=== PATIENT | female | born 1960 | race Caucasian/White ===

== ENCOUNTER → 2018-05-16 14:32 | Outpatient (POV) | payer MEDICARE, OTHER, SELFPAY | PROVIDERS: Visit Provider Nurse Practitioner Acute Care | DX: Z00.00 Encounter for general adult medical examination without abnormal findings (principal) ==

== ENCOUNTER → 2018-07-22 09:55 | Outpatient (CLI) | payer MEDICARE, OTHER, SELFPAY ==
--- NOTE | 2018-07-22 09:56 | MM_ITS ---
MM Dig screening mamm BI w/CAD CAD Screening COMPARISON: Digital mammograms 04/27/2017 and 03/03/2016 INDICATION: There is no personal or family history of breast cancer TECHNIQUE: Standard CC and MLO images were obtained. R2 CAD reviewed. FINDINGS: Scattered fibroglandular densities are seen throughout both breasts. There is no new or suspicious lesion in either breast and there are no suspicious microcalcifications. There are couple benign-appearing calcifications left breast. There is a pacemaker device overlying left axilla as noted previously. IMPRESSION: Fibrofatty parenchyma with no suspicious lesion seen BI-RADS Category: 2 Benign Finding(s) RECOMMENDED FOLLOW-UP: 1YR - 1 YEAR FOLLOW-UP (A letter has been sent to the patient regarding results of the study.)
== END ==
PROVIDERS: PCP Internal Medicine; Visit Provider Nurse Practitioner Obstetrics & Gynecology
DX: Z12.31 Encounter for screening mammogram for malignant neoplasm of breast (principal)
CPT/HCPCS: 77067

== ENCOUNTER → 2019-08-11 15:47 | Outpatient (CLI) | payer MEDICARE, OTHER, SELFPAY ==
--- NOTE | 2019-08-11 16:00 | MM_ITS ---
PROCEDURE: MM DIG SCREENING MAMM BI W/CAD CLINICAL INDICATION: Routine Screening Mammogram There is no personal or family history of breast cancer. COMPARISON: DMDXUWAL DIG MAMM-DX UNI LT W ADD VIEW from 03/16/2016 DMSB DIG MAMM-SCREEN LISSA W/CAD from 04/27/2017 [facility] MM Dig screening mamm BI w/CAD from 07/22/2018 TECHNIQUE: Standard CC and MLO images were obtained. R2 CAD reviewed. FINDINGS: Scattered fibroglandular densities are seen throughout both breasts and the findings of bilateral symmetrical. Again noted is the pacemaker device projecting over the left axilla. There are couple of benign-appearing microcalcifications in each breast. There is no suspicious lesion and no suspicious microcalcifications. IMPRESSION: Fibrofatty parenchyma with no suspicious lesions seen BI-RAD Category: 2 Benign Finding(s) FOLLOW-UP: 1YR 1 Year Follow-up (A letter has been sent to the patient regarding results of the study.) Dictated by: Dr. Nikko Cohen MD 08/15/2019 15:[address] Nikko Cohen MD in [place] 08/15/2019 15:51
== END ==
PROVIDERS: PCP Internal Medicine; Visit Provider Nurse Practitioner Obstetrics & Gynecology
DX: Z12.31 Encounter for screening mammogram for malignant neoplasm of breast (principal)
CPT/HCPCS: 77067

== ENCOUNTER → 2020-09-04 16:11 | Outpatient (CLI) | payer MEDICARE, OTHER, SELFPAY ==
--- NOTE | 2020-09-04 16:11 | MM_ITS ---
PROCEDURE: MM DIG SCREENING MAMM BI W/CAD Digital Breast Tomosynthesis Included CLINICAL INDICATION: screening xmg There is no personal or family history of breast cancer. COMPARISON: MG DMSB DIG MAMM-SCREEN LISSA W/CAD from 04/27/2017 MG [facility] MM Dig screening mamm BI w/CAD from 07/22/2018 MG MM DIG SCREENING MAMM BI W/CAD from 08/11/2019 TECHNIQUE: Standard CC and MLO images and 3D Tomosynthesis was obtained. R2 CAD reviewed. FINDINGS: Mild scattered fibroglandular densities are seen throughout each breast on a background fatty breast parenchyma. There has been mild progressive fatty replacement of the breast parenchyma to previous studies. Again noted is partially visualized cardiac device overlying the axillary tail left breast. There is no new suspicious lesion in either breast and no suspicious microcalcifications. IMPRESSION: Fibrofatty parenchyma with no suspicious lesions seen BI-RAD Category: 2 Benign Finding(s) FOLLOW-UP: 1YR 1 Year Follow-up (A letter has been sent to the patient regarding results of the study.) Dictated by: Dr. Nikko Cohen MD 09/06/2020 09:47 Dr. Nikko Cohen MD in [place] 09/06/2020 09:47
== END ==
PROVIDERS: PCP Internal Medicine; Visit Provider Nurse Practitioner Obstetrics & Gynecology
DX: Z12.31 Encounter for screening mammogram for malignant neoplasm of breast (principal)
CPT/HCPCS: 77063; 77067

== ENCOUNTER 2020-11-27 12:21 | Day surgery (SDC) | payer MEDICARE, OTHER, SELFPAY ==
--- NOTE | 2020-11-27 | IR_ITS ---
APPROVED REPORT Patient Location: Out[facility] Worker: DANILO Montana RT (R) PROCEDURES 1. Pocket Revision 2. Removal of old Pacemaker 3. Implant of Permanent Pacemaker INDICATION Sinus Bradycardia, End of Battery Life Informed consent was obtained prior to the procedure. COMPLICATIONS None Estimated Blood Loss: Less than 10 mls TECHNIQUE 1% lidocaine with epinephrine used to anesthetize the left anterior aspect of the chest. Scalpel was used to make the initial cutaneous incision and then used to dissect down to the existing pacemaker generator. The generator was removed from the existing pocket. Digital manipulation was required along with intermittent usage of scalpel in order to revise the pocket. The leads were removed from the old generator. The new generator was screwed to the existing leads and secured into place. Electronic interrogation proved acceptable thresholds and voltage within the lead. Antibiotics were used to flush the pocket and the pacemaker was secured using 3-0 silk into the newly revised pocket. Monocryl was used to close the subcutaneous tissue and then miguel were placed on the cutaneous area in order to approximate the incision. Patient was transferred to the postop holding area in stable condition. INTERROGATION Generator Model number: [employer] [facility] [facility] IS-1, L311 Generator Serial number: [id number] Atrial lead model number: [employer], 1488T Atrial lead serial number: [id number] P-wave: 2.5mV Impedence: 450 ohms Threshold: 0.5V@0.4ms Right Ventricular lead model number: [employer], 1645T Right Ventricular lead serial number: [id number] R-wave: 5.0mV Impedence: 700 ohms Threshold: 0.7V@0.4ms Pacing Parameters: Mode: DDDR RYTHMIQ: AAIR with VVI Backup Base/Max Track: 70/130 ppm No diaphragmatic stimulation at 10 volts. IMPRESSION 1. Successful Pocket Revision 2. Successful Removal of old Pacemaker 3. Successful Implant of Permanent Pacemaker PLAN 1. Post op wound care, Follow up office visit Electronically signed by : Gil Browning, 11/28/2020 11:49:45
[2020-11-27 12:51] VITALS: BMI 42.7
[2020-11-27 13:05] VITALS: BP 144/67; PULSE 70; RESP 17; O2SAT 98
[2020-11-27 13:07] VITALS: PULSE 70
[2020-11-27 16:07] VITALS: BP 111/74; PULSE 77; RESP 18; TEMP 36.1; O2SAT 98
[2020-11-27 16:15] VITALS: BP 120/76; PULSE 70; RESP 18; O2SAT 98
--- NOTE | 2020-11-27 16:15 | P.PN_ITS ---
[facility] Anesthesia Checklist - Structural Data Admitted From: Home Planned Operative Procedure/s: battery change Consent for Planned Operative Procedure(s) Verified: Yes - Additional verifications Anesthesia Reactions: No - Airway Assessment C-Spine Mobility Assessed: Yes TMJ Mobility Assessed: Yes Dentition: Good Dentition - Neurological Assessment Level of Consciousness: Awake, Alert, Appropriate - Anesthesia Plan Anesthesia Risk discussed: Yes Anesthesia Plan: Verified ASA Class: III Anesthesia Type: MAC [facility] History I have reviewed the patient's past medical history: Yes Medical History: Reports:: Arrhythmia, Coronary Artery Disease, Diabetes Mellitus Type 2, Gastroesophageal Reflux Disease(GERD), Hyperlipidemia, Hyp ertension, Internal Pacemaker Denies:: Diabetes Mellitus Type 1, Lung Disease, Seizures *Have you ever received a pneumonia vaccine?: Yes *Have you received a flu vaccine this season?: Yes Other Medical History: Reports: Hypothyroidism Anesthesia experience/problems:: none Other Surgeries: Yes: Cardiac Catheterization, Hysterectomy-Total, Pacemaker, Other (back sx) Amputation: No Fractures: No - *Social History Last grade of school completed: High school graduate Smoking Status: Never smoker Alcohol Intake: never Alcohol Intake Frequency:: other Substance Use Type: denies use *Occupational Status:: retired *Travel in the last 8 weeks: None Family Hx:: Coronary Artery Disease
[2020-11-27 16:30] VITALS: BP 144/79; PULSE 72; RESP 18; O2SAT 98
[2020-11-27 16:45] VITALS: BP 144/79; PULSE 72; RESP 18; O2SAT 98
== END 2020-11-27 16:51 | disposition home or self-care (01) ==
LOC: CATHLAB 12:22
PROVIDERS: PCP Internal Medicine; Visit Provider Internal Medicine
DX: Z45.010 Encounter for checking and testing of cardiac pacemaker pulse generator [battery] (principal); E11.9 Type 2 diabetes mellitus without complications; Z79.84 Long term (current) use of oral hypoglycemic drugs; Z79.899 Other long term (current) drug therapy; I49.5 Sick sinus syndrome; I10 Essential (primary) hypertension; E78.5 Hyperlipidemia, unspecified
CPT/HCPCS: 33228; C1785

== ENCOUNTER 2020-12-20 12:25 | Observation (INO) | payer MEDICARE, OTHER, SELFPAY ==
[2020-12-20] VITALS (15 sets, daily range): BP systolic 124–174; BP diastolic 69–95; PULSE 70–85; RESP 16–21; TEMP 36.6–36.8; O2SAT 96–99; BMI 42.7; BMI 42.5
[2020-12-20 13:10] LABS: Chloride 108 mmol/L (98-107); Sodium 133 mmol/L (136-145)
[2020-12-20 13:13] LABS: Blood Urea Nitrogen 26 mg/dl (7-17); Carbon Dioxide 18 mmol/L (22.0-30.0); Creatinine Clearance Estimated 27 mL/min (50-200); Estimated Glomerular Filt Rate 27 ml/min (>60); GFR (African American) 33 ML/MIN (>60)
[2020-12-20 13:14] LABS: Calcium 10.2 mg/dl (8.4-10.2); Glucose 110 mg/dl (74-100); Magnesium 1.7 mg/dl (1.6-2.3)
--- NOTE | 2020-12-20 13:18 | HMH.EDGENADL ---
ED Disposition Clinical Impression: Hyperkalemia Disposition: Admitted As Inpatient Condition on Discharge: Good - Critical Care Critical Care Time: No Attestation: On 12/20/20, the high probability of a clinically significant, sudden or life threatening deterioration of the following system(s) required my full and direct attention, intervention and personal management. The time I documented below is in addition to time spent performing reported procedures but includes the following listed in this critical care notation. Medical Decision Making - Medical Records Medical records reviewed: Yes: I reviewed the patient's medical records. - Edu Inquiry Pt receiving controlled substance: No Vital Signs: 12/20/20 12:26 12/20/20 13:00 12/20/20 13:31 Temperature 98 F Temperature Source Oral Pulse Rate 70 70 Pulse Rate [Radial] 78 Respiratory Rate 16 20 21 Blood Pressure 174/87 H 134/72 Blood Pressure [Right Arm] 172/95 H Blood Pressure Mean 116 94 Blood Pressure Mean [Right Arm] 120 Blood Pressure Position [Right Arm] Sitting 02 Sat by Pulse Oximetry 96 99 99 Oxygen Delivery Method Room Air - Lab Data Lab results reviewed: Yes: I reviewed the patient's lab results. Lab Results 12/20/20 12:50: Sodium 133 L, Potassium 8.4 H*, Chloride 108 H, Carbon Dioxide 18 L, Anion Gap 15.4 H, BUN 26 H, Creatinine 1.90 H, Estimated Creat Clear 27, Estimated GFR 27 L, Est GFR ( Amer) 33 L, Glucose 110 H, Calcium 10.2, Phosphorus 4.0, Magnesium 1.7 12/20/20 12:50: WBC 9.1, RBC 3.64 L, Hgb 11.0 L, Hct 33.7 L, MCV 92.5, MCH 30.2, MCHC 32.6, RDW 13.7, Plt Count 245, MPV 8.5, Neut % (Auto) 54.2, Lymph % (Auto) 35.7, Perkins % (Auto) 6.2, Eos % (Auto) 3.8, Baso % (Auto) 0.3, Neut # (Auto) 4.9, Lymph # (Auto) 3.3, Perkins # (Auto) 0.6, Eos # (Auto) 0.3, Baso # (Auto) 0.0 Result diagrams: 12/20/20 12:50 12/20/20 12:50 Orders (Tests/Meds): ED MEDICATIONS Generic Name Dose Route Start Last Admin Trade Name Freq PRN Reason Stop Dose Admin Sodium Chloride 1,000 mls @ 999 mls/hr 12/20/20 13:30 12/20/20 13:43 Sod Chlor 0.9% 1000ml Bag IV 12/20/20 14:30 999 mls/hr .Q1H1M SIXTO Administration Discontinued Medications Generic Name Dose Route Start Last Admin Trade Name Freq PRN Reason Stop Dose Admin Albuterol Sulfate 7.5 mg 12/20/20 13:29 Albuterol 0.083% 2.5 Mg/3 Ml Neb IH 12/20/20 13:30 ONCE ONE Dextrose 25 ml 12/20/20 13:24 12/20/20 13:43 Dextrose 50% 50ml Syringe (Crash Cart) IVP 12/20/20 13:25 25 ml ONCE ONE Administration Insulin Human Regular 10 unit 12/20/20 13:24 12/20/20 13:43 Insulin Human Regular 100 Units/Ml 10ml Vial IVP 12/20/20 13:25 10 unit ONCE ONE Administration Sodium Polystyrene Sulfonate 15 gm 12/20/20 13:24 12/20/20 13:44 Sodium Poly Sulfon 15gm/60ml Oral.Susp PO 12/20/20 13:25 15 gm ONCE ONE Administration ORDERS Category Date Time Status Full Resp Panel w/COVID ([facility]) Routine Lab 12/20/20 13:49 Received Urinalysis and Microscopic Stat Lab 12/20/20 13:22 Ordered ECG Request by Dr/Raúl Stat Y 12/20/20 13:22 Ordered - ECG Data Tracing #1 EKG at 1349 shows a normal sinus rhythm with a rate of 72. No acute ST segment elevation or depression. Normal AR, QRS and QTc. EKG interpreted by me. Medical Decision Narrative: Patient does have elevated potassium here of 8.4, no chest pain and no EKG changes. I have ordered Kayexalate, insulin, D50 and albuterol treatment. I discussed this case with Dr. La and patient will be admitted for further management. Creatinine of 1.9. General Adult HPI - General Chief complaint: Recheck/Abnormal Lab/Rx Stated complaint: high potasioum Time Seen by Provider: 12/20/20 13:18 Mode of Arrival: Ambulatory Limitations: No Limitations Description of Symptoms (Recalled from ER Triage Doc. by RN): to ed per pvt car pt states sent to ed by pcp for elevated K+ today. pt de
[2020-12-20 13:20] LABS: Anion Gap 15.4 mEq/L (5-15); Potassium 8.4 mmoL/L (3.5-5.1)
[2020-12-20 13:42] LABS: Basophils % 0.3 % (0.1-2.0); Eosinophils # 0.3 K/mm3 (0.0-0.4); Eosinophils % 3.8 % (0.1-12.0); Hematocrit 33.7 % (37.0-47.0); Lymphocytes # 3.3 K/mm3 (0.7-4.5); Lymphocytes % 35.7 % (10-50); Mean Corpuscular HGB Conc 32.6 g/dL (31.8-35.4); Mean Corpuscular Hemoglobin 30.2 pg (27.0-31.2); Mean Corpuscular Volume 92.5 fl (81-99); Mean Platelet Volume 8.5 fl (7.4-10.4); Monocytes # 0.6 K/mm3 (0.1-1.0); Monocytes % 6.2 % (1.7-9.3); Neutrophils # 4.9 K/mm3 (1.8-7.8); Neutrophils % 54.2 % (37.0-80.0); Platelet Count 245 K/mm3 (142-424); Red Blood Count 3.64 M/mm3 (4.20-5.40); Red Cell Distribution Width 13.7 % (11.5-17.5); White Blood Count 9.1 K/mm3 (4.8-10.8)
--- NOTE | 2020-12-20 13:49 | ECG_ITS ---
APPROVED REPORT Exam: Resting ECG HR:72 bpm ECG Measurements Heart Rate [address] 182 P 33 QRSd 94 QRS 12 QT 372 T 39 QTc 407 Conclusion Normal sinus rhythm Low voltage QRS Borderline ECG Electronically signed by : Jeferson Mcmillan, 12/21/2020 21:07:03
[2020-12-20 14:04] LABS: Adenovirus,PCR Not Detected (NotDetected); Bordetella Pertussis Not Detected (NotDetected); Chlamydophila Pneumoniae, PCR Not Detected (NotDetected); Coronavirus 19, PCR Not Detected (NotDetected); Coronavirus 229E Not Detected (NotDetected); Coronavirus NL63 Not Detected (NotDetected); Coronavirus OC43 Not Detected (NotDetected); Coronovirus HKU1,PCR Not Detected (NotDetected); Human Metapneumovirus Not Detected (NotDetected); Influenza A, PCR Not Detected (NotDetected); Influenza AH1, 2009 Not Detected (NotDetected); Influenza AH1, PCR Not Detected (NotDetected); Influenza AH3,PCR Not Detected (NotDetected); Influenza B, PCR Not Detected (NotDetected); Mycoplasma Pneumoniae, PCR Not Detected (NotDetected); Parainfluenza 1, PCR Not Detected (NotDetected); Parainfluenza 2, PCR Not Detected (NotDetected); Parainfluenza 3, PCR Not Detected (NotDetected); Parainfluenza 4, PCR Not Detected (NotDetected); Respiratory Syncytial Virus Not Detected (NotDetected); Rhinovirus/Enterovirus Not Detected (NotDetected)
--- NOTE | 2020-12-20 14:56 | HMH.PHAVTE ---
[facility] Pharmacy VTE Monitoring - Patient Demographics Admission date: 12/20/20 Report Date: 12/20/20 Time: 14:56 Allergies/Adverse Reactions: Patient Allergies No Known Allergies Allergy (Verified 12/16/20 10:12) Height: 1.63 m Weight: 112.945 kg Patient Problems: Current Active Problems Hyperkalemia (Acute) - VTE Risk Labs: VTE Related Lab Results Hgb 11.0 g/dL (12.2-16.2) L 12/20/20 12:50 Hct 33.7 % (37.0-47.0) L 12/20/20 12:50 Plt Count 245 K/mm3 (142-424) 12/20/20 12:50 BUN 26 mg/dl (7-17) H 12/20/20 12:50 Creatinine 1.90 mg/dl (0.52-1.04) H 12/20/20 12:50 Estimated Creat Clear 27 mL/min (50-200) 12/20/20 12:50 Clinical Trial Participant: No - Prophylaxis VTE Prophylaxis Ordered?: Yes Types of VTE Prophylaxis: TEDS Knee High
--- NOTE | 2020-12-20 15:00 | PC.NURSE ---
PT RESTING OFFERS NO C/O AT PRESENT
--- NOTE | 2020-12-20 16:00 | PC.NURSE ---
PT UPDATED ON PLAN OF CARE
--- NOTE | 2020-12-20 17:00 | PC.NURSE ---
PT UPDATED ON PLAN OF CARE
--- NOTE | 2020-12-20 18:57 | HMH.HP ---
*Admission Date: 12/20/20 *Chief complaint: hyperkalemia on outpatient labs, fatigue *History of present illness: Ms. Meredith is a pleasant 60-year-old female with recent history of replacement of pacemaker generator. Past medical history significant for hypertension, hyperlipidemia, diabetes, arrhythmia, hypothyroid disease. She presented to the ER today at the urging of her primary care physician due to elevated potassium on lab work with recheck over the past 2 days. Patient states she has had some fatigue but denies kathya arrhythmias, palpitation, chest pain. She reports having a placed on Bactrim for suspected pacemaker pocket infection, saw her primary care provider 2 days ago for weakness and fatigue that was thought to maybe be related to the Bactrim. She was taken off of Bactrim and placed on another antibiotic that she does not know the name of. She has felt much better since stopping the Bactrim, but labs were returned showing a potassium of 7.2. Today, patient is completely asymptomatic including no chest pain, shortness of breath, vomiting, urinary symptoms. Admitted to medicine for further management and observation overnight with serial labs to monitor for improvement in her potassium. [facility] History I have reviewed the patient's past medical history: Yes Medical History: Reports:: Arrhythmia, Coronary Artery Disease, Diabetes Mellitus Type 2, Gastroesophageal Reflux Disease(GERD), Hyperlipidemia, Hypertension, Internal Pacemaker Denies:: Cancer, Diabetes Mellitus Type 1, Lung Disease, MRSA, Seizures *Have you ever received a pneumonia vaccine?: Yes *Have you received a flu vaccine this season?: Yes Other Medical History: Reports: Arthritis, Hypothyroidism, Thyroid Disease Other Surgeries: Yes: Cardiac Catheterization, Colonoscopy, EGD, Hysterectomy-Total, Pacemaker, Other (back sx) Amputation: No Fractures: No - *Social History Last grade of school completed: High school graduate Smoking Status: Never smoker Alcohol Intake: never Alcohol Intake Frequency:: other Substance Use Type: denies use *Occupational Status:: retired, disabled Housing: house Household Members: spouse *Travel in the last 8 weeks: None Family Hx:: Cancer, Diabetes, Heart Attack, Hyperlipidemia, Hypertension Review of Systems - Review of Systems Review of systems:: pertinent systems reviewed and negative unless documented below (14 point review of systems performed, pertinent positives and negatives as per HPI) Meds Home Medications Medication Instructions Recorded Confirmed Type aspirin 325 mg tablet 325 mg PO ONCE tab 11/10/17 12/20/20 History benazepril 40 mg tablet 40 mg PO ONCE 11/10/17 12/20/20 History hydrochlorothiazide 25 mg tablet 25 mg PO QAM 11/10/17 12/20/20 History omeprazole 40 mg capsule,delayed 40 mg PO ONCE 11/10/17 12/20/20 History release pravastatin 20 mg tablet 20 mg PO QHS 11/10/17 12/20/20 History metformin 500 mg tablet 500 mg PO BID 05/12/18 12/20/20 History carvediloL [Carvedilol 25mg Tab] 25 mg PO BID 06/22/18 12/20/20 History potassium chloride 20 mEq 20 meq PO DAILY tab 05/09/20 12/20/20 History tablet,extended release(part/cryst) levothyroxine 100 mcg tablet 100 mcg PO DAILY tab 09/04/20 12/20/20 History Sulfamethoxazole/Trimethoprim 2 tab PO BID 12/20/20 12/20/20 History [Sulfamethoxazole-Tmp Ds Tablet*] Allergies Allergy/AdvReac Type Severity Reaction Status Date / Time No Known Allergies Allergy Verified 12/16/20 10:12 Exam Vital signs and Labs for Last 24 Hours: Temp Pulse Resp BP Pulse Ox 98.3 F 85 19 166/93 H 98 12/20/20 17:56 12/20/20 18:38 12/20/20 17:56 12/20/20 17:56 12/20/20 18:38 Laboratory Results - last 24 hr 12/20/20 12:50: Sodium 133 L, Potassium 8.4 H*, Chloride 108 H, Carbon Dioxide 18 L, Anion Gap 15.4 H, BUN 26 H, Creatinine 1.90 H, Estimated Creat Clear 27, Estimated GFR 27 L, Est GFR ( Amer) 33 L, Glucose 110 H, Calcium 10.2, Phosphorus 4.0, M
[2020-12-20 19:46] LABS: Potassium 6.1 mmoL/L (3.5-5.1)
--- NOTE | 2020-12-20 21:00 | PC.NURSE ---
pt had no needs,restock gloves in room and snacks. Felipe
[2020-12-20 23:25] LABS: Potassium 5.8 mmoL/L (3.5-5.1)
[2020-12-21] VITALS: BP 106/47; PULSE 79; PULSE 90; RESP 16; TEMP 36.7; O2SAT 95
[2020-12-21 04:00] VITALS: BP 147/58; PULSE 70; PULSE 71; RESP 16; TEMP 36.8; O2SAT 99
--- NOTE | 2020-12-21 05:01 | PC.NURSE ---
patient resting with eyes closed; no c/o pain or discomfort reported this shift. Potassium level decreasing; provider notified; Lab drawn due at 0600. Patient shows no s/s of acute distress at this time; call light within reach; bed at lowest level for safety; will continue to monitor.
[2020-12-21 05:05] VITALS: BMI 42.9
--- NOTE | 2020-12-21 05:28 | PC.NURSE ---
pt helped to bathroom.no other needs Ice water,trash,dirty linen and room straighten up.Felipe
[2020-12-21 07:07] LABS: MANUAL DIFFERENTIAL MANUAL DIFFERENTIAL (MANUAL DIFF)
--- NOTE | 2020-12-21 07:07 | HMH.DCSUM ---
General - General Admission date:: 12/20/20 Discharge date: 12/21/20 HPI HPI: Ms. Meredith is a pleasant 60-year-old female with recent history of replacement of pacemaker generator. Past medical history significant for hypertension, hyperlipidemia, diabetes, arrhythmia, hypothyroid disease. She presented to the ER today at the urging of her primary care physician due to elevated potassium on lab work with recheck over the past 2 days. Patient states she has had some fatigue but denies kathya arrhythmias, palpitation, chest pain. She reports having a placed on Bactrim for suspected pacemaker pocket infection, saw her primary care provider 2 days ago for weakness and fatigue that was thought to maybe be related to the Bactrim. She was taken off of Bactrim and placed on another antibiotic that she does not know the name of. She has felt much better since stopping the Bactrim, but labs were returned showing a potassium of 7.2. Today, patient is completely asymptomatic including no chest pain, shortness of breath, vomiting, urinary symptoms. Admitted to medicine for further management and observation overnight with serial labs to monitor for improvement in her potassium. Hospital Course Hospital Course: Admitted for observation due to hyperkalemia. Patient treated medically with Kayexalate, calcium gluconate, dextrose and insulin. Tolerated treatment well. Potassium responded appropriately, 5.2 this morning on labs. Patient medically stable throughout admission with no abnormalities on telemetry. Overall feels better this morning per her report. Stable for discharge home. Will discontinue potassium chloride supplement. Continue all other home medications. Close follow-up in our office in a week. Did not continue antibiotics as they are likely a cause of her acute kidney injury and hyperkalemia, additionally left chest infection/generator pocket infection appears resolved with no tenderness, erythema, fluctuance or drainage. Close follow-up with cardiology on Wednesday already scheduled. Objective Vital signs: Temp Pulse Resp BP Pulse Ox 98.3 F 71 16 147/58 H 99 12/21/20 04:00 12/21/20 04:00 12/21/20 04:00 12/21/20 04:00 12/21/20 04:00 Narrative: - Constitutional no acute distress, obese - *Routine HEENT Exam Head: Present: normocephalic Eye: Present: EOMI, PERRL ENT: Present: mucous membranes moist - *Routine Neck Exam Present: supple. Absent: lymphadenopathy - *Routine Respiratory Exam Present: CTA bilaterally - *Routine Cardiovascular Exam Present: RRR - *Routine Abdominal Exam Present: soft, normoactive bowel sounds. Absent: tenderness - *Routine Extremities Exam Absent: cyanosis, clubbing, edema - *Routine Skin Exam Present: warm. Absent: rash - *Routine Neurological Exam Present: alert, oriented X3 Results Labs on day of discharge: Labs from last 24 hours 12/20/20 12/20/20 12/20/20 23:15 19:03 13:49 WBC RBC Hgb Hct MCV MCH MCHC RDW Plt Count MPV Neut % (Auto) Lymph % (Auto) Banks % (Auto) Eos % (Auto) Baso % (Auto) Neut # (Auto) Lymph # (Auto) Banks # (Auto) Eos # (Auto) Baso # (Auto) Sodium Potassium 5.8 H 6.1 H* D Chloride Carbon Dioxide Anion Gap BUN Creatinine Estimated Creat Clear Estimated GFR Est GFR ( Amer) Glucose Calcium Phosphorus Magnesium Chlamy pneumoniae PCR Not detected Adenovirus (PCR) Not detected B. pertussis DNA (PCR) Not detected Coronavirus OC43 (PCR) Not detected Coronavirus HKU1 (PCR) Not detected Coronavirus 229E (PCR) Not detected SARS-CoV-2 (PCR) Not detected Coronavirus NL63 (PCR) Not detected Human Metapneumovir PCR Not detected Influenza A (H1) PCR Not detected Influ A (H1N1/09) PCR Not detected Influenza A (H3) PCR Not detected Influenza Type A (PCR) Not det
[2020-12-21 07:18] LABS: Basophils % 0.4 % (0.1-2.0); Eosinophils # 0.3 K/mm3 (0.0-0.4); Eosinophils % 3.2 % (0.1-12.0); Hematocrit 29.8 % (37.0-47.0); Lymphocytes # 3.5 K/mm3 (0.7-4.5); Lymphocytes % 38.7 % (10-50); Mean Corpuscular HGB Conc 33.5 g/dL (31.8-35.4); Mean Corpuscular Hemoglobin 30.8 pg (27.0-31.2); Mean Corpuscular Volume 91.9 fl (81-99); Monocytes # 0.8 K/mm3 (0.1-1.0); Monocytes % 8.6 % (1.7-9.3); Neutrophils # 4.4 K/mm3 (1.8-7.8); Neutrophils % 49.1 % (37.0-80.0); Platelet Count 201 K/mm3 (142-424); Red Blood Count 3.24 M/mm3 (4.20-5.40); Red Cell Distribution Width 13.6 % (11.5-17.5)
[2020-12-21 07:23] LABS: Anion Gap 14.2 mEq/L (5-15); Blood Urea Nitrogen 20 mg/dl (7-17); Carbon Dioxide 16 mmol/L (22.0-30.0); Chloride 107 mmol/L (98-107); Creatinine Clearance Estimated 39 mL/min (50-200); Estimated Glomerular Filt Rate 42 ml/min (>60); GFR (African American) 50 ML/MIN (>60); Glucose 97 mg/dl (74-100); Potassium 5.2 mmoL/L (3.5-5.1); Sodium 132 mmol/L (136-145)
[2020-12-21 07:27] LABS: Calcium 8.8 mg/dl (8.4-10.2)
[2020-12-21 08:00] VITALS: BP 144/78; PULSE 75; PULSE 80; RESP 19; TEMP 36.9; O2SAT 97
[2020-12-21 08:22] LABS: Acanthocytes 1+; Eosinophils % 1 % (0-3); Lymphocytes % 36 % (10-50); Monocytes % 2 % (2-9); Neutrophils % 55 % (42-76); Platelet Estimate Normal; Poikilocytosis 1+; Total Cells Counted 100
--- NOTE | 2020-12-21 10:45 | PC.NURSE ---
PT STATED THAT SHE WANTED TO WAIT UNTIL SHE GOT HOME TO TAKE HER MORNING MEDS.
== END 2020-12-21 10:42 | disposition home or self-care (01) ==
LOC: ER 14:14 → 2ND 18:49
PROVIDERS: Family Medicine; Admitting Provider Internal Medicine Adolescent Medicine; Emergency Provider Emergency Medicine; PCP Internal Medicine; Visit Provider Internal Medicine Adolescent Medicine
DX: E87.5 Hyperkalemia (principal); E11.9 Type 2 diabetes mellitus without complications; I12.9 Hypertensive chronic kidney disease with stage 1 through stage 4 chronic kidney disease, or unspecified chronic kidney disease; I25.10 Atherosclerotic heart disease of native coronary artery without angina pectoris; Z95.0 Presence of cardiac pacemaker; I49.5 Sick sinus syndrome; E78.5 Hyperlipidemia, unspecified; E66.01 Morbid (severe) obesity due to excess calories; Z68.41 Body mass index [BMI] 40.0-44.9, adult; N18.30 Chronic kidney disease, stage 3 unspecified; Z79.899 Other long term (current) drug therapy; Z79.84 Long term (current) use of oral hypoglycemic drugs
CPT/HCPCS: 36415; 80048; 83735; 84100; 84132; 85007; 85014; 85018; 85025; 85048; 85049; 87581; 87633; 87798; 93005; 94640; 96365; 96375; 99284; G0378

== ENCOUNTER → 2021-07-08 10:58 | Outpatient (CLI) | payer MEDICARE, OTHER, SELFPAY ==
--- NOTE | 2021-07-08 | CA_ITS ---
APPROVED REPORT Left Lower Extremity Venous Study for DVT. Ethylbenzene Oxidizer: CT Indications Lower Extremity Pain: 325 MG ASA Vein Imaging CFV (L): compressive, spontaneous, phasic, augmentation SFJ (L): compressive, spontaneous, phasic, augmentation FEM (L): compressive, spontaneous, phasic, augmentation POP (L): compressive, spontaneous, phasic, augmentation DFV (L): compressive, spontaneous, phasic, augmentation PTV (L): compressive, spontaneous, phasic, augmentation GSV (L): compressive, spontaneous, phasic, augmentation SSV (L): Not Visualized Peroneals (L):compressive, spontaneous, phasic, augmentation GAS (L): compressive, spontaneous, phasic, augmentation Findings LLE negative for DVT/SVT Vessels fully compressible. Conclusion LLE negative for DVT/SVT Vessels fully compressible. Electronically signed by : Alexis Guerrier MD 07/09/2021 18:26:41
== END ==
PROVIDERS: PCP Internal Medicine Adolescent Medicine; Visit Provider Internal Medicine Adolescent Medicine
DX: M79.662 Pain in left lower leg (principal)
CPT/HCPCS: 93971

== ENCOUNTER → 2021-08-05 15:42 | Outpatient (CLI) | payer MEDICARE, OTHER, SELFPAY ==
[2021-08-05 16:43] LABS: Anion Gap 14.8 mEq/L (5-15); Blood Urea Nitrogen 28 mg/dl (7-17); Calcium 9.9 mg/dl (8.4-10.2); Carbon Dioxide 23 mmol/L (22.0-30.0); Chloride 104 mmol/L (98-107); Estimated Glomerular Filt Rate 38 ml/min (>60); GFR (African American) 46 ML/MIN (>60); Glucose 100 mg/dl (74-100); Potassium 4.8 mmoL/L (3.5-5.1); Sodium 137 mmol/L (136-145)
== END ==
PROVIDERS: Visit Provider Internal Medicine Adolescent Medicine
DX: I10 Essential (primary) hypertension (principal)
CPT/HCPCS: 36415; 80048

== ENCOUNTER → 2021-09-18 13:30 | Outpatient (CLI) | payer MEDICARE, OTHER, SELFPAY ==
--- NOTE | 2021-09-18 13:30 | MM_ITS ---
PROCEDURE INFORMATION: Exam: MG Bilateral Screening 3D Mammography Exam date and time: 09/18/2021 1:30 PM Age: 61 years old Clinical indication: Screening mammogram TECHNIQUE: Imaging protocol: Bilateral screening tomosynthesis and 2D mammography including computer-aided detection (CAD) when performed. COMPARISON: 1. MG MM DIG SCREENING MAMM BI W/CAD 09/04/2020 4:15 PM 2. MG MM DIG SCREENING MAMM BI W/CAD 08/11/2019 4:16 PM 3. MG [facility] MM Dig screening mamm BI w/CAD 07/22/2018 10:25 AM 4. MG DMSB DIG MAMM-SCREEN LISSA W/CAD 04/27/2017 9:03 AM FINDINGS: MAMMOGRAPHY: Breast composition: There are scattered areas of fibroglandular density. Mass: Stable benign-appearing subcentimeter nodules are present in the bilateral breasts. No new or morphologically suspicious nodule has developed to suggest malignancy. Architectural distortion: No new or suspicious architectural distortion. Calcifications: No new or suspicious calcifications are present Asymmetric density: No new or suspicious asymmetric density is present Skin thickening: None. Axillary adenopathy: None. IMPRESSION: No mammographic evidence of malignancy. Recommend annual screening mammography unless otherwise clinically indicated. ASSESSMENT: BI-RADS category 2: Benign
== END ==
PROVIDERS: PCP Internal Medicine Adolescent Medicine; Visit Provider Nurse Practitioner Obstetrics & Gynecology
DX: Z12.31 Encounter for screening mammogram for malignant neoplasm of breast (principal)
CPT/HCPCS: 77063; 77067

== ENCOUNTER → 2022-10-05 14:42 | Outpatient (CLI) | payer MEDICARE, OTHER, SELFPAY ==
--- NOTE | 2022-10-05 14:42 | MM_ITS ---
PROCEDURE INFORMATION: Exam: MG Bilateral Screening 3D Mammography Exam date and time: 10/05/2022 3:12 PM Age: 62 years old Clinical indication: Screening examination; Additional info: Screening mammogram TECHNIQUE: Imaging protocol: Bilateral Screening tomosynthesis and 2D mammography including computer-aided detection (CAD) when performed. COMPARISON: 1. MG MM DIG SCREENING MAMM BI W/CAD 09/18/2021 1:28 PM 2. MG MM DIG SCREENING MAMM BI W/CAD 09/04/2020 4:15 PM 3. MG MM DIG SCREENING MAMM BI W/CAD 08/11/2019 4:16 PM FINDINGS: Limitations: Partial obscuration of the left axilla on MLO projection secondary to overlying cardiac pacing device. Images are best obtainable. MAMMOGRAPHY: Breast composition: There are scattered areas of fibroglandular density. Mass: No suspicious masses. Architectural distortion: No suspicious distortion. Calcifications: No suspicious calcifications. Asymmetric density: None. Skin thickening: None. Axillary adenopathy: None. IMPRESSION: No mammographic evidence of malignancy. Annual screening is recommended unless otherwise clinically indicated. ASSESSMENT: BI-RADS Category 2: Benign
== END ==
PROVIDERS: PCP Nurse Practitioner Family; Visit Provider Obstetrics & Gynecology
DX: Z12.31 Encounter for screening mammogram for malignant neoplasm of breast (principal)
CPT/HCPCS: 77063; 77067

== ENCOUNTER 2023-11-19 09:04 | Outpatient (CLI) | payer MEDICARE, OTHER, SELFPAY ==
--- NOTE | 2023-11-19 09:04 | CA_ITS ---
APPROVED REPORT EXAM: Comprehensive 2D, Doppler, and color-flow Echocardiogram Marble Polisher: Zabrina Tovar RDCS Ht: 5 ft 5 in Wt: 231lbs BSA: 2.10 BP: 111/82 mmHg Indications: HHD,PP,CHF M-Mode Dimensions RVDd 2.66 cm (0.9-2.6) LA Diam 3.70 cm (1.9-4.0) LVDd 5.78 cm (3.5-5.7) LVDs 3.91 cm (3.5-5.7) IVSd 0.72 cm (0.6-1.1) PWd 0.80 cm (0.6-1.1) EF (Teich) 59.90% FS 32.40% EDV (Teich) 165.20 mL ESV (Teich) 66.30 mL LV Diastology E Decel Time 280 (160-240 msec) E/A Ratio 1.2 Aortic Valve DANAE Index 0.49 cm2/m2 AoV Peak Armando. 227.0 (50-130 cm/s) AO Peak GR. 20.70 mmHg AO Mean GR. 10.10 (<5 mmHg) AO VTI 45.8 (18-25 cm) DANAE (VTI) 1.06 (2.5-4.5 cm2) Mitral Valve MV E Max Armando. 65.0 (40-130 cm/s) MV A Velocity 53.0 (40-130 cm/s) E/A Ratio 1.22 MV PHT 82.0 ms Left Ventricle The left ventricle is normal size. The left ventricular systolic function is normal. The left ventricular ejection fraction is within the normal range. There is normal left ventricular wall thickness. There is normal LV segmental wall motion. The left ventricular diastolic function is normal. LVEF is 55%. Right Ventricle The right ventricle is mildly dilated. The right ventricular systolic function is normal. Atria The left atrium size is normal. The right atrium size is normal. There is no Doppler evidence of interatrial shunt. Aortic Valve The aortic valve is mildly thickened. There is focal nodular thickening on the right coronary cusp. Aortic sclerosis, but no evidence of aortic stenosis. No aortic regurgitation. Mitral Valve The mitral valve is normal in structure. No evidence of mitral valve stenosis. Trace mitral regurgitation. Tricuspid Valve The tricuspid valve leaflets are thin and pliable. Trace tricuspid regurgitation. There is insufficient TR jet to estimate RVSP. Pulmonic Valve The pulmonary valve is normal in structure. Trace pulmonic regurgitation. Great Vessels The aortic root is normal in size. The ascending aorta is normal in size. IVC is normal in size and collapses >50% with inspiration. Pericardium There is no pericardial effusion. Other Information Study Quality: Fair Conclusion Normal biventricular systolic function. The aortic valve is mildly thickened. There is focal nodular thickening on the right coronary cusp. No evidence of or AI. No significant valvular stenosis or regurgitation. Electronically signed by : [place] Thomas MD 11/22/2023 19:22:29
== END 2023-11-19 23:59 ==
LOC: RT 09:04
PROVIDERS: PCP Nurse Practitioner Family; Visit Provider Nurse Practitioner
DX: E78.5 Hyperlipidemia, unspecified (principal); I11.0 Hypertensive heart disease with heart failure; R60.9 Edema, unspecified; Z95.0 Presence of cardiac pacemaker; R94.31 Abnormal electrocardiogram [ECG] [EKG]
CPT/HCPCS: 93306

== ENCOUNTER 2023-12-06 16:50 | Outpatient (CLI) | payer MEDICARE, OTHER, SELFPAY ==
--- NOTE | 2023-12-06 16:52 | MM_ITS ---
PROCEDURE INFORMATION: Exam: MG Bilateral Screening 3D Mammography Exam date and time: 12/06/2023 4:39 PM Age: 63 years old Clinical indication: Screening examination TECHNIQUE: Imaging protocol: Bilateral Screening tomosynthesis and 2D mammography including computer-aided detection (CAD) when performed. COMPARISON: 1. MG MM DIG SCREENING MAMM BI W/CAD 10/05/2022 3:12 PM 2. MG MM DIG SCREENING MAMM BI W/CAD 09/18/2021 1:28 PM FINDINGS: MAMMOGRAPHY: Breast composition: There are scattered areas of fibroglandular density. Mass: None. Architectural distortion: None. Calcifications: No suspicious calcifications. Asymmetric density: None. Skin thickening: None. Axillary adenopathy: None. IMPRESSION: No mammographic evidence of malignancy. Annual screening is recommended unless otherwise clinically indicated. ASSESSMENT: BI-RADS Category 1: Negative
== END 2023-12-06 23:59 ==
PROVIDERS: PCP Nurse Practitioner Family; Visit Provider Nurse Practitioner Obstetrics & Gynecology
DX: Z12.31 Encounter for screening mammogram for malignant neoplasm of breast (principal)
CPT/HCPCS: 77063; 77067

== ENCOUNTER 2023-12-16 09:14 | Day surgery (SDC) | payer MEDICARE, OTHER, SELFPAY ==
[2023-12-13 12:37] VITALS: BMI 41.1
[2023-12-16 09:36] VITALS: BP 120/78; PULSE 74; RESP 16; TEMP 36.3; O2SAT 99
[2023-12-16] MEDS: LACTATED RINGERS 1000ML 1,000 ML 25 ML IV (09:43)
--- NOTE | 2023-12-16 10:09 | P.PNANES_ITS ---
[facility] Disclaimer: The information contained in this section may have been updated after the patient was seen, as this information can be updated by other users. Medical History History of pacemaker Venous insufficiency Incisional infection Cardiac pacemaker battery worn out HLD (hyperlipidemia) Hypertensive heart disease Sick sinus syndrome Cardiac pacemaker in situ Surgical History (Updated 12/16/23 @ 09:34 by Pilar Camacho RN) History of colonoscopy History of back surgery History of hysterectomy Family History Other Asthma Cancer Coronary artery disease Diabetes Hyperlipidemia Hypertension Kidney disease Thyroid disorder Social History Smoking Status: Never smoker alcohol intake: never substance use type: denies use current occupational status: retired and disabled Travel in the last 8 weeks: Inside the [place] household members: spouse housing: house caffeine: Yes [facility] Anesthesia Checklist Patient Identification Patient Identification: Arm Band Structural Data Admitted From: Home Planned Operative Procedure/s: Colonoscopy Consent for Planned Operative Procedure(s) Verified: Yes Verified Documents: Surgical Consent and History and Physical NPO Status Verified Time NPO: 00:00 Additional verifications Anesthesia Reactions: No Airway Assessment Mallampati Score:: Class II C-Spine Mobility Assessed: Yes TMJ Mobility Assessed: Yes Dentition: Good Dentition Neurological Assessment Level of Consciousness: Awake and Alert Anesthesia Plan Anesthesia Risk discussed: Yes Anesthesia Plan: Verified ASA Class: III Anesthesia Type: MAC
[2023-12-16 10:32] VITALS: O2SAT 99
--- NOTE | 2023-12-16 10:48 | HMH.SCOPE ---
Procedure: Date: 12/16/23 Patient Date of :: 1960 Procedure Performed:: Screening colonoscopy Indications:: Colon cancer screening Performing Provider:: Vega Herndon MD Referring Provider:: Jodie Brian APRN Sedation:: Propofol Procedure:: After placing the patient in the left lateral decubitus position, the colonoscopy was gently inserted into the rectum and under direct visualization advanced to the cecum which was identified by transillumination in the right lower quadrant, identification of the ileocecal valve, appendiceal orifice, and cecal strap. Color, texture, mucosa, and anatomy of the colon were carefully examined with the scope. Findings:: Anal canal: normal Rectum: normal Sigmoid colon: normal without polyps or inflammatory changes, diverticulosis Descending colon: normal without polyps or inflammatory changes, diverticulosis Splenic flexure: normal Transverse colon: normal without polyps or inflammatory changes, diverticulosis Hepatic flexure: normal Ascending colon: normal without polyps or inflammatory changes, diverticulosis Cecum: normal Terminal ileum: not visualized Impression: Normal colonoscopy with harris-diverticulosis Recommendations:: Follow up examination in about TEN years or so, sooner if clinically indicated. Complications:: None Estimated blood obtained (mL): 0 Colonoscopy Component Colonoscopy Component Was a colonoscopy performed during today's procedure?: Yes Recommended follow up colonoscopy of at least 10 years?: Yes
[2023-12-16 10:50] VITALS: BP 86/51; PULSE 70; RESP 17; TEMP 36.4; O2SAT 97
[2023-12-16 11:00] VITALS: BP 86/52; PULSE 70; RESP 16; O2SAT 95
[2023-12-16 11:10] VITALS: BP 95/64; PULSE 71; RESP 17; O2SAT 98
[2023-12-16 11:20] VITALS: BP 107/62; PULSE 70; RESP 16; O2SAT 99
[2023-12-17 07:35] LABS: POC Glucose,Bedside 124 (70-110)
== END 2023-12-16 11:29 | disposition home or self-care (01) ==
PROVIDERS: PCP Nurse Practitioner Family; Visit Provider Internal Medicine Gastroenterology
PROC: (CPT G0121; principal; 2023-12-16 10:30)
DX: Z12.11 Encounter for screening for malignant neoplasm of colon (principal); K57.30 Diverticulosis of large intestine without perforation or abscess without bleeding; Z79.899 Other long term (current) drug therapy
CPT/HCPCS: G0121; 82962

== ENCOUNTER 2024-03-06 13:38 | Outpatient (CLI) | payer MEDICARE, OTHER, SELFPAY ==
--- NOTE | 2024-03-06 13:38 | US_ITS ---
FINAL REPORT TECHNIQUE: Ultrasound images of the thyroid were obtained. CLINICAL HISTORY: thyroid nodule -- hx of radiation to thyroid gland FINDINGS: The right lobe of the thyroid measures 2.1 x 1.2 x 0.9 cm. It is normal in echogenicity. The left lobe of the thyroid measures 2.9 x 0.8 x 0.8 cm. It is normal in echogenicity. The thyroid is small. There is a hyperechoic left thyroid lobe nodule measuring 8 x 6 x 4 mm, TR 3. IMPRESSION: TR 3 left thyroid lobe nodule. No follow-up needed. Reviewed, Interpreted and Dictated by Ward Torres III, MD Transcribed by Suni Young Authenticated and [facility]
[2024-03-06 14:31] LABS: Basophils # 0.1 K/mm3 (0-0.2); Basophils % 0.7 % (0.1-2.0); Eosinophils # 0.3 K/mm3 (0.0-0.4); Eosinophils % 3.1 % (0.1-12.0); Hematocrit 34.9 % (37.0-47.0); Hemoglobin 11.5 g/dL (12.2-16.2); Lymphocytes # 3.9 K/mm3 (0.7-4.5); Lymphocytes % 45.5 % (10-50); Mean Corpuscular Hemoglobin 31.6 pg (27.0-31.2); Mean Corpuscular Volume 95.6 fl (81-99); Mean Platelet Volume 8.7 fl (7.4-10.4); Monocytes # 0.4 K/mm3 (0.1-1.0); Monocytes % 4.9 % (1.7-9.3); Neutrophils # 3.9 K/mm3 (1.8-7.8); Neutrophils % 45.7 % (37.0-80.0); Platelet Count 251 K/mm3 (142-424); Red Blood Count 3.65 M/mm3 (4.20-5.40); Red Cell Distribution Width 13.9 % (11.5-17.5); White Blood Count 8.6 K/mm3 (4.8-10.8)
[2024-03-06 15:18] LABS: Alanine Aminotransferase 19 U/L (12-78); Albumin/Globulin Ratio 1.7 (1.1-1.8); Alkaline Phosphatase 61 U/L (38-126); Anion Gap 13.1 mEq/L (5-15); Aspartate Amino Transferase 23 U/L (14-36); Bilirubin,Total 0.8 mg/dl (0.2-1.3); Blood Urea Nitrogen 25 mg/dl (7-17); Calcium 9.8 mg/dl (8.4-10.2); Carbon Dioxide 23 mmol/L (22.0-30.0); Chloride 103 mmol/L (98-107); Estimated Glomerular Filt Rate 45 ml/min (>60); GFR (African American) 55 ML/MIN (>60); Globulin 2.4 g/dL (1.3-3.2); Glucose 92 mg/dl (74-100); Potassium 5.1 mmoL/L (3.5-5.1); Sodium 134 mmol/L (136-145); Total Protein,Serum 6.4 g/dl (6.3-8.2)
[2024-03-06 15:32] LABS: Free T4 (Free Thyroxine) 1.34 ng/dl (0.78-2.19)
[2024-03-06 15:47] LABS: Thyroid Stimulating Hormone 2.11 uIU/mL (0.465-4.68)
== END 2024-03-06 23:59 | disposition home or self-care (01) ==
LOC: RAD 13:38
PROVIDERS: PCP Nurse Practitioner Family; Visit Provider Nurse Practitioner
DX: E78.2 Mixed hyperlipidemia (principal); E03.9 Hypothyroidism, unspecified; E04.1 Nontoxic single thyroid nodule
CPT/HCPCS: 36415; 76536; 80053; 84439; 84443; 85025

== ENCOUNTER 2024-08-22 15:08 | Outpatient (CLI) | payer MEDICARE, OTHER, SELFPAY ==
--- NOTE | 2024-08-22 15:11 | CA_ITS ---
FINAL REPORT CLINICAL HISTORY: LLE PAIN,EDEMA,NKI,PT ON ASA FINDINGS: DUPLEX VENOUS SONOGRAPHY OF THE LEFT LOWER EXTREMITY Multiple transverse and longitudinal scans were performed of the femoropopliteal deep venous system, with augmentation and compression maneuvers. FINDINGS: Normal phasic flow was noted in the visualized deep venous system. No intraluminal increased echogenicity is noted to suggest thrombus. There is normal compression and augmentation of the venous structures. No abnormal venous collaterals are seen. IMPRESSION: No evidence of deep venous thrombosis of the left lower extremity. Reviewed, Interpreted and Dictated by Mi Davey MD Transcribed by Briseida Kwong Authenticated and [facility]
== END 2024-08-22 23:59 | disposition home or self-care (01) ==
LOC: RT 15:09
PROVIDERS: PCP Nurse Practitioner Family; Visit Provider Nurse Practitioner Family
DX: M79.605 Pain in left leg (principal); M79.89 Other specified soft tissue disorders
CPT/HCPCS: 93971

== ENCOUNTER 2024-09-04 13:56 | Outpatient (RCR) | payer MEDICARE, OTHER, SELFPAY ==
--- NOTE | 2024-09-04 14:46 | HMH.PTOPWND ---
Rehab Outpt Wound Evaluation Rehab OP Wound Evaluation Start: 09/04/24 14:36 Freq: Status: Active Protocol: Document 09/04/24 14:36 ALEN (Rec: 09/04/24 14:46 PHOBERENICE [id number]) E-signed By Kyle Rangel, PT Subjective/History History History This is the initial PT eval for Evi Meredith, 64 yowf who presents with c/o L LE edema for several mos, but acutely worse x ~2-3 wks. She reports her PCP prescribed a medication at her last visit ~ 2 wks ago which has helped significantly. She currently reports minimal pain, no tenderness, and no edema in the L LE. She reports previous she had difficulty walking due to the edema, but has no problems now. She would like to have some form of compression garments to keep this problem from happening again. She has PMH of HTN, KILEY , heart failure with pacemaker , partial hysterectomy, thyroid XRT, diverticulosis, and lumbar fusion. Subjective Subjective Currently she c/o 3/10 pain which is essentially her baseline. TTP is 0/4, no redness and no palpable edema noted throughout the L LE this date. New diagnosis of cancer in past 12 No months? Lymphedema Eval Classification of Lymphedema Secondary Lymphedema Yes Stemmer's sign Stemmer's Sign no Stage of Lymphedema Lymphedema stages Stage 0 (subjective c/o heaviness and aching) Skin Changes Dry Skin Yes Other Changes Yes Pain Scale Pain Scale (0-10) 3 Affected Extremities Areas Affected by Lymphedema/Edema Left Lower Extremity Lower Extremity Measurements Left MTP Measurement (cm) 22.9 Heel Measurement (cm) 31.8 10 cm Proximal to Lateral Malleoli 34.5 Measurement (cm) 20 cm Proximal to Lateral Malleoli 46.5 Measurement (cm) 30 cm Proximal to Lateral Malleoli 48.7 Measurement (cm) 40 cm Proximal to Lateral Malleoli 0 Measurement (cm) 50 cm Proximal to Lateral Malleoli 0 Measurement (cm) 60 cm Proximal to Lateral Malleoli 0 Measurement (cm) Lower Extremity Measurement Total (cm) 184.4 Manual Lymphatic Drainage Treatment Area MLD Treatment Area Left Lower Extremity Wound Problems/Impairments Impairments Problems/Impairmments Increased Edema,Impaired Self Care/Self Management Prognosis Rehab Potential Good Comment Skilled therapy is indicated to reduce overall edema burden , aid pt management of edema, and return pt to PLOF. Clinical Impression Consistent with Diagnosis Yes Outpatient Therapy Plan of Care Treatment Plan May Include Eval/Re-Eval Yes Frequency Times per week 0 Duration Number of Weeks 0 Addendums This patient is a candidate for social No or vocational rehab? Patient/Guardian verbally acknowledges Yes understanding of treatment program and consents to further treatment? Patient/Guardian verbally acknowledges Yes understanding of diagnosis, prognosis and goals for treatment? Eval Complexity PT Charges 02461 - High Complexity PHYSICIAN CERTIFICATION: I certify the specified therapy services for Evi Meredith are required, authorized, and reviewed every 30 days.
== END 2024-09-04 23:59 | disposition home or self-care (01) ==
LOC: PT 13:56
PROVIDERS: PCP Nurse Practitioner Family; Visit Provider Nurse Practitioner Family
DX: I89.0 Lymphedema, not elsewhere classified (principal)
CPT/HCPCS: 97163

== ENCOUNTER 2024-09-12 13:27 | Outpatient (CLI) | payer MEDICARE, OTHER, SELFPAY ==
--- NOTE | 2024-09-12 13:43 | US_ITS ---
FINAL REPORT CLINICAL HISTORY: history of thyroid nodules COMPARISON: 03/06/2024 FINDINGS: The thyroid gland is severely atrophic, worse than prior suggesting chronic thyroiditis. The parenchyma is mildly heterogeneous. There is a questionable TR 3 nodule in the right lobe measuring up to 6 mm. There is a TR 3 nodule in the left lobe measuring 5 mm, stable. IMPRESSION: Chronic thyroiditis with tiny benign-appearing nodules. These could also be pseudo nodules from chronic thyroid disease. Reviewed, Interpreted and Dictated by Cindi Ng MD Transcribed by Verito Vincent Authenticated and [facility]
[2024-09-12 14:59] LABS: Free T4 (Free Thyroxine) 1.25 ng/dl (0.78-2.19)
[2024-09-12 15:14] LABS: Thyroid Stimulating Hormone 4.46 uIU/mL (0.465-4.68)
== END 2024-09-12 23:59 | disposition home or self-care (01) ==
LOC: RAD 13:32
PROVIDERS: PCP Nurse Practitioner Family; Visit Provider Nurse Practitioner
DX: E04.1 Nontoxic single thyroid nodule (principal); E03.9 Hypothyroidism, unspecified
CPT/HCPCS: 36415; 76536; 84439; 84443

== ENCOUNTER 2024-11-23 13:44 | Outpatient (CLI) | payer MEDICARE, OTHER, SELFPAY ==
--- NOTE | 2024-11-23 13:52 | XR_ITS ---
FINAL REPORT CLINICAL HISTORY: PAIN COMPARISON: None FINDINGS: LEFT KNEE Three views demonstrate no acute fracture or dislocation. There is moderate to severe tricompartmental degenerative change most pronounced within the medial compartment. There is evidence of chondrocalcinosis. There is no evidence of joint effusion. No acute soft tissue abnormality is seen. IMPRESSION: Advanced degenerative changes. Reviewed, Interpreted and Dictated by Cindi Ng MD Transcribed by Coni Alaniz Authenticated and [facility]
[2024-11-23 15:13] LABS: Basophils % 0.3 % (0.1-2.0); Eosinophils # 0.2 K/mm3 (0.0-0.4); Eosinophils % 2.3 % (0.1-12.0); Hematocrit 35.6 % (37.0-47.0); Hemoglobin 11.6 g/dL (12.2-16.2); Lymphocytes # 2.7 K/mm3 (0.7-4.5); Lymphocytes % 31.4 % (10-50); Mean Corpuscular HGB Conc 32.6 g/dL (31.8-35.4); Mean Corpuscular Hemoglobin 30.1 pg (27.0-31.2); Mean Corpuscular Volume 92.2 fl (81-99); Mean Platelet Volume 11.2 fl (7.4-10.4); Monocytes # 0.8 K/mm3 (0.1-1.0); Monocytes % 8.9 % (1.7-9.3); Neutrophils % 56.6 % (37.0-80.0); Platelet Count 250 K/mm3 (142-424); Red Blood Count 3.86 M/mm3 (4.20-5.40); Red Cell Distribution Width 12.9 % (11.5-17.5); White Blood Count 8.7 K/mm3 (4.8-10.8)
[2024-11-23 15:15] LABS: Alanine Aminotransferase 20 U/L (12-78); Albumin Level 4.5 g/dl (3.5-5.0); Alkaline Phosphatase 72 U/L (38-126); Aspartate Amino Transferase 23 U/L (14-36); Bilirubin,Direct 0.1 mg/dl (0.0-0.4); Bilirubin,Indirect 0.5 mg/dL (0.0-0.9); Bilirubin,Total 0.6 mg/dl (0.2-1.3); Bilirubin,Unconjugated 0.5 mg/dL (0.0-1.1); Blood Urea Nitrogen 31 mg/dl (7-17); Calcium 9.8 mg/dl (8.4-10.2); Carbon Dioxide 24 mmol/L (22.0-30.0); Chloride 103 mmol/L (98-107); Chol/HDL Ratio 2.4 (1-3.5); Cholesterol 154 mg/dl (140-200); Estimated Glomerular Filt Rate 45 ml/min (>60); GFR (African American) 55 ML/MIN (>60); Glucose 92 mg/dl (74-100); HDL Cholesterol 65 mg/dl (40-60); Magnesium 1.9 mg/dl (1.6-2.3); Sodium 135 mmol/L (136-145); Total Protein,Serum 6.4 g/dl (6.3-8.2); Triglycerides 87 mg/dl (30-150); VLDL Cholesterol 17 mg/dL (0-40)
[2024-11-23 15:26] LABS: Direct LDL Cholesterol 57.09 mg/dL (100-129)
[2024-11-23 15:32] LABS: Free T4 (Free Thyroxine) 1.49 ng/dl (0.78-2.19)
== END 2024-11-23 23:59 | disposition home or self-care (01) ==
LOC: RAD 13:46
PROVIDERS: Nurse Practitioner Family; PCP Nurse Practitioner Family; Visit Provider Nurse Practitioner Family
DX: M25.562 Pain in left knee (principal); E03.9 Hypothyroidism, unspecified; I11.0 Hypertensive heart disease with heart failure; E87.5 Hyperkalemia; E78.2 Mixed hyperlipidemia
CPT/HCPCS: 36415; 73562; 80048; 80061; 80076; 83735; 84439; 84443; 85025

== ENCOUNTER 2025-02-08 13:16 | Outpatient (CLI) | payer MEDICARE, OTHER, SELFPAY ==
--- NOTE | 2025-02-08 13:18 | XR_ITS ---
FINAL REPORT CLINICAL HISTORY: Pain x1.5 months COMPARISON: None FINDINGS: RIGHT KNEE Three views demonstrate no acute fracture or dislocation. There is moderate medial compartment joint space narrowing. There is subchondral sclerosis. There are osteophytes at the lateral joint margin and along the undersurface of the patella consistent with moderate changes of osteoarthritis. No acute soft tissue abnormality is seen. IMPRESSION: Moderate changes of osteoarthritis. Reviewed, Interpreted and Dictated by Laron Castaneda MD Transcribed by Coni Alaniz Authenticated and . [facility]
== END 2025-02-08 23:59 | disposition home or self-care (01) ==
LOC: RAD 13:17
PROVIDERS: PCP Nurse Practitioner Family; Visit Provider Physician Assistant
DX: M17.11 Unilateral primary osteoarthritis, right knee (principal); M25.761 Osteophyte, right knee; M25.861 Other specified joint disorders, right knee
CPT/HCPCS: 73562

== ENCOUNTER 2025-02-09 15:37 | Outpatient (CLI) | payer MEDICARE, OTHER, SELFPAY ==
--- NOTE | 2025-02-09 15:45 | MM_ITS ---
PROCEDURE INFORMATION: Exam: MG Bilateral Screening 3D Mammography Exam date and time: 02/09/2025 3:49 PM Age: 64 years old Clinical indication: Screening examination TECHNIQUE: Imaging protocol: Bilateral Screening tomosynthesis and 2D mammography including computer-aided detection (CAD) when performed. COMPARISON: 1. MG MM DIG SCREENING MAMM BI W/CAD 12/06/2023 4:39 PM 2. MG MM DIG SCREENING MAMM BI W/CAD 10/05/2022 3:12 PM FINDINGS: MAMMOGRAPHY: Breast composition: There are scattered areas of fibroglandular density. Mass: None. Architectural distortion: None. Calcifications: No suspicious calcifications. Asymmetric density: None. Skin thickening: None. Axillary adenopathy: None. IMPRESSION: No mammographic evidence of malignancy. Annual screening is recommended unless otherwise clinically indicated. ASSESSMENT: BI-RADS 1, Negative.
== END 2025-02-09 23:59 | disposition home or self-care (01) ==
LOC: RAD 15:38
PROVIDERS: PCP Nurse Practitioner Family; Visit Provider Obstetrics & Gynecology
DX: Z12.31 Encounter for screening mammogram for malignant neoplasm of breast (principal); R92.323 Mammographic fibroglandular density, bilateral breasts
CPT/HCPCS: 77063; 77067

== ENCOUNTER 2025-09-25 13:28 | Outpatient (CLI) | payer MEDICARE, OTHER, SELFPAY ==
--- NOTE | 2025-09-25 13:45 | US_ITS ---
FINAL REPORT TECHNIQUE: Sonographic images of the thyroid gland were obtained in the longitudinal and transverse planes. CLINICAL HISTORY: monitor thyroid nodules COMPARISON: 09/12/2024 FINDINGS: The right lobe measures 0.6 x 1.3 x 0.8 cm. Mildly heterogeneous and not well-visualized. No discrete nodules. The left lobe measures 0.7 x 1.3 x 0.8 cm. Mildly heterogeneous and not well-visualized. No discrete nodules. The isthmus measures 3 mm. This is normal. IMPRESSION: Small heterogeneous thyroid gland with no focal nodule identified. Reviewed, Interpreted and Dictated by Mi Davey MD Transcribed by María Kaye Authenticated and [facility]
== END 2025-09-25 23:59 | disposition home or self-care (01) ==
LOC: RAD 13:29
PROVIDERS: PCP Nurse Practitioner Family; Visit Provider Nurse Practitioner
DX: E03.9 Hypothyroidism, unspecified (principal)
CPT/HCPCS: 76536